=== PATIENT | male | born 1960 | race Caucasian/White ===

== ENCOUNTER 2018-04-04 13:50 | Emergency (ER) | payer OTHER, SELFPAY ==
[2018-04-04 13:51] VITALS: BP 131/63; PULSE 80; RESP 14; TEMP 37.7; O2SAT 97; BMI 36.6
--- NOTE | 2018-04-04 15:46 | CT_ITS ---
STUDY: CT ABDOMEN AND PELVIS WITHOUT CONTRAST REASON FOR EXAM: Male, 57 years old. Left groin pain RADIATION DOSAGE (If Supplied By Facility): CTDIvol = ( 22.22 ) mGy, DLP = ( 1126.89 ) mGycm TECHNIQUE: Transaxial images were obtained from the dome of the diaphragm to the symphysis pubis without oral contrast, and without intravenous contrast. Sagittal and coronal images were reconstructed. Individualized dose optimization techniques were used for this CT. COMPARISON: None. FINDINGS: Body wall soft tissues: There is no hernia or lymphadenopathy of the groin. Osseous structures: No acute process. Inferior chest: No acute process. Hepatobiliary: The liver is enlarged, craniocaudal right liver 21 cm. It appears to be mildly steatotic. Normal gallbladder and biliary tree. Pancreas: No acute process. Spleen: Normal. Adrenal glands: Normal. Urogenital: Normal kidneys, collecting systems, ureters, urinary bladder, prostate and seminal vesicles. Pelvic floor and sidewalls and retroperitoneum: No mass or adenopathy. Vasculature: No acute process. Stomach: No acute process. Small bowel and mesentery: No acute process. Large bowel: The appendix appears to be surgically absent. Large bowel to the distal descending colon is normal. There is acute diverticulitis of the proximal sigmoid colon and diffuse diverticulosis of the proximal to mid sigmoid colon. In the region of diverticulitis, there is prominent inflammatory induration in the fat surrounding the thick-walled bowel. There is no phlegmon, abscess or juliet perforation. Free fluid or free air: None. CT/Abdomen/Pelvis without Cont IMPRESSION: Acute diverticulitis of the proximal sigmoid colon. Electronically Signed: Gilbert Zapien, at 16:38 EDT Tel , Service support ,
--- NOTE | 2018-04-04 15:47 | ED.DCSUM_ITS ---
- ER Visit Summary Date of Service: 04/04/18 Chief Complaint: Abdominal pain History of Present Illness: The patient is a 57 M who has left-sided abdominal pain. Started yesterday at work. Pain is worse when he was driving. He states the pain is left lateral abdomen. No dysuria hematuria. No nausea, vomiting or diarrhea. He took nothing for it at home. He has no history of any hernias. He has a history of an appendectomy. Physical Examination: Vital signs reviewed. HEENT exam unremarkable. Heart is regular rate and rhythm without murmurs. Lungs are clear to auscultation. Abdomen is soft with tenderness in the left lateral abdomen lateral to the umbilicus. There is no hernia palpated. No skin changes. Extremities reveal no edema. Skin exam normal. Neurologic exam normal. Test Results: Labs are normal except for white blood cell count of 13. CT reveals diverticulitis Emergency Department Course and Treatment: Patient declined pain medications. He will be treated with Cipro and Flagyl the diverticulitis. He will follow-up with his PCP Treatment Plan: [] Disposition: Discharge Impression: Acute diverticulitis This note was generated with [employer] software. It may contain incorrect words, spelling, and punctuation that were not noted in review of the chart prior to signing ED Disposition - Plan for ED Patient: Chief Complaint: Lower Extremity Injury Referrals: NOT,DEFINED [NON-STAFF] -
[2018-04-04 16:09] LABS: Bacteria 0 SEEN /hpf (None Seen); Mucous, Urine 0 SEEN /hpf (<or=2+); Squamous Epithelial Cells - UA 0 SEEN /hpf (0-5); White Blood Cells 0 SEEN /hpf (0-5)
[2018-04-04 16:14] LABS: Absolute Lymphocyte Count 1.92 X10^3/ul (0.83-4.51); Absolute Neutrophil Count 9.7 X10^3/uL (2.0-7.7); Basophil# 0.02 X10^3/uL; Basophil% 0.2 % (0-1); Eosinophil# 0.04 X10^3/uL; Eosinophils% 0.3 % (0-5); Hematocrit 41.1 % (40-54); Hemoglobin 13.9 g/dl (13.0-16.5); Lymphocyte # 1.92 X10^3/ul (4.0); Lymphocyte % 14.8 % (19-41); Mean Corp Hgb Conc 33.8 g/gl (32-36); Mean Corpuscular Hgb 30.3 pg (27.0-32.0); Mean Corpuscular Volume 89.5 fL (80-94); Monocyte# 1.24 X10^3/uL; Monocyte% 9.6 % (0-10); Neutrophil # 9.73 X10^3/uL (2.7-7.7); Neutrophil % 74.9 % (47-70); Platelet Count 219 K/mm3 (150-450); RBC Distribution Width CV 12.5 % (11.6-14.6); Red Blood Count 4.59 M/mm3 (4.6-6.2)
[2018-04-04 16:15] LABS: POSITIVE COUNT NO; POSITIVE DIFFERENTIAL NO; POSITIVE MORPHOLOGY NO
[2018-04-04 16:15] LABS: Color, Urine Yellow (Yellow); Glucose, Dipstick Normal (Normal); Ketone-Dipstick Negative (Negative); Leukocyte Esterase-Dipstick Negative /ul (Negative); Nitrite-Dipstick Negative (Negative); Occult Blood-Urine Negative /ul (Negative); Protein-Dipstick Negative (Negative); Urine Bilirubin Dipstick Negative (Negative); Urine Clarity Clear (Clear); Urine Urobilinogen 1 mg/dl (Normal)
[2018-04-04 16:27] LABS: Anion Gap 7 (5-15); BUN 15 mg/dL (7-18); BUN/Creat Ratio 18.6 RATIO (10-20); Calcium,Total 8.8 mg/dL (8.5-10.1); Chloride 100 mmol/L (98-107); Creatinine, Serum 0.81 mg/dL (0.70-1.30); EST Glomerular Filtration Rate 105 mL/min (>60); Est Glom Filt Rate - Afr Amer 126 mL/min (>60); Estimated Creatinine Clearance 92.94 ml/min; Glucose 101 mg/dL (74-106); Potassium 3.7 mmol/L (3.5-5.1); Sodium Level 136 mmol/L (136-145)
[2018-04-04 16:30] LABS: Red Blood Cells-Urine 0-5 SEEN /hpf (0-5)
[2018-04-04 16:52] VITALS: BP 126/73; PULSE 64; RESP 16; O2SAT 98
--- NOTE | 2018-04-04 16:54 | ED.DEP ---
ED Disposition - Plan for ED Patient: Disposition: Home or Assisted Living Chief Complaint: Lower Extremity Injury Instructions: ED Diverticulitis Prescriptions: Metronidazole [Flagyl] 500 mg PO Q8H #30 tab Ciprofloxacin [Cipro] 500 mg PO BID #20 tab Referrals: NOT,DEFINED [NON-STAFF] -
[2018-04-04] MEDS: metroNIDAZOLE 500 MG Tablet PO (17:16)
[2018-04-04] MEDS: Ciprofloxacin 500 MG Tablet PO (17:16)
== END 2018-04-04 17:23 | disposition home or self-care (01) ==
PROVIDERS: Emergency Medicine; Emergency Provider Emergency Medicine
DX: K57.92 Diverticulitis of intestine, part unspecified, without perforation or abscess without bleeding (principal)
CPT/HCPCS: 74176; 80048; 81001; 85025; 99285; A4216

== ENCOUNTER 2021-07-12 01:52 | Inpatient (IN) | payer BC, SELFPAY ==
[2021-07-12] VITALS (10 sets, daily range): BP systolic 120–142; BP diastolic 70–90; PULSE 52–61; RESP 18–20; TEMP 36.1–36.6; O2SAT 96–99; BMI 37.0
--- NOTE | 2021-07-12 01:07 | PCS.PANDOC ---
PANDEMIC DOCUMENTATION INITIATED: Date: 03/09/2021 Time: 190
--- NOTE | 2021-07-12 01:37 | PCM.HP.STD ---
HPI - General General Date of Admission: 07/12/21 Date of Service: 07/12/21 Chief Complaint: Abdominal distention, abdominal pain HPI Narrative TANYA POTTER, is a 60 M who presents as a direct admission to [facility] from [facility] emergency room, he went there for evaluation of abdominal distention and abdominal pain which started today. Patient was nauseated but he had no emesis. Work-up in the emergency room at [facility] included a CT of the abdomen and pelvis this showed a small bowel obstruction with a transition point identified in the right lower quadrant, fatty liver was noted to be present, there was no evidence of diverticulitis but diverticulosis was present. Patient's labs were obtained white blood cell count was elevated at 13.6 hemoglobin was normal chemistry panel was abnormal for a sodium of 135, glucose was 129. Patient had a high sensitive troponin obtained, he did not have any symptoms of chest discomfort however, his troponin was high at 120.2, second troponin was obtained and it was 112. Patient's chest x-ray showed no acute process. EKG was performed and showed no evidence of ischemic changes according to the ER physician at [facility]. COVID-19 test was ordered but results are pending at the time of this dictation. Patient is fully vaccinated according to nursing. EKG was obtained here after admission and it showed a sinus bradycardia 57 with no evidence of acute ischemic changes. Patient will be admitted, he will be given IV fluids, IV antiemetics, and IV narcotics for pain if needed. Patient will be seen in consultation by general surgery. Patient's troponin will be repeated in a few hours. [facility] Medical History (Updated 07/12/21 @ 01:[address] Jonas West, ) Hypertension Vzbts-Kdneiwrlo-Agjpi (WPW) syndrome (~1992) Home Medications Lisinopril PO/SL DAILY 04/04/18 [History Last Taken 07/11/21] Allergy/AdvReac Type Severity Reaction Status Date / Time Penicillins AdvReac Other Verified 07/12/21 01:09 Surgical History (Updated 07/12/21 @ 01:26 by Senia Sheriff) Hx of appendectomy Social History Smoking Status: Former smoker ROS Constitutional Constitutional: Denies anorexia, change in weight, fever(s), night sweats or weakness Eyes Eyes: Denies blurry vision, change in vision, discharge from eye(s) or eye pain ENT HEENT: Denies abnormal hearing, dysphagia, ear pain, epistaxis or headache(s) Cardiovascular Cardiovascular: Denies chest pain, claudication, dyspnea on exertion, edema or palpitations Respiratory/Chest Respiratory/Chest: Denies cough, hemoptysis, shortness of breath at rest or shortness of breath with exertion Gastrointestinal Gastrointestinal: Reports abdominal pain and nausea; Denies constipation, diarrhea, hematemesis, hematochezia, melena or vomiting Genitourinary Genitourinary: Denies dysuria, hematuria, urinary frequency, urinary hesitancy, urinary incontinence or urinary urgency Musculoskeletal Musculoskeletal: Denies back pain, joint pain, joint stiffness, joint swelling, myalgias or neck pain Neurologic Neurologic: Denies abnormal gait, abnormal speech, dizziness, focal weakness, headache(s), loss of vision, numbness, other visual disturbances, paresthesias, syncope or tingling Psychiatric Psychiatric: Denies anxiety, cognitive impairment, depression, irritability, mood swings or suicidal ideation Endocrine Endocrinology: Denies change in body appearance, cold intolerance, excessive sweating, heat intolerance, polydipsia or polyuria Hematologic/Lymphatic Hematologic/Lymphatic: Denies none, anemia, easy bleeding, easy bruising or lymphadenopathy Allergic/Immunologic Allergic/Immunologic: Denies rhinitis, urticaria, eczemia or asthma Vital Signs Vital Signs Vital Signs: 07/12/21 01:05 07/12/21 01:31 Temperature 97.4 F L Temperature Source Oral Pulse Rate 60 58 L Respiratory Rate 18 Blood Pressure 142/90 H Blood Pressure Mean 107 Blood Pressure Source Monitor Blood Pressure Position Semi-Fowlers Blood Pressure Location Left Arm Pulse Ox 96 Oxygen Delivery Method Room Air Weight Weight: 110.6 kg Body Mass Index (BMI) 37.0 Physical Exam Const alert, oriented x3, no apparent distress and healthy appearing General Appearance: cooperative, well kempt and well developed Orientation / Consciousness: awake, oriented to person, oriented to place and oriented to time HEENT normocephalic, head/scalp atraumatic, hearing grossly normal bilaterally and moist oral mucous membranes Eyes PERRL, EOMs intact bilaterally and conjunctivae normal Neck nuchal rigidity, supple, no JVD, thyroid normal and no carotid bruits General: trachea midline Resp normal respiratory effort, no retractions, no use of accessory muscles and clear to auscultation bilaterally Auscultation: Negative for rales, rhonchi or wheezes Cardio regular rate, regular rhythm, S1 normal heart sound, S2 normal heart sound, no murmurs, no rub and no gallops GI soft to palpation GI Narrative: Patient has mild abdominal distention at the time of my exam, there is moderate tenderness to palpation over the entire abdomen-more so over the left abdominal area. Bowel sounds are diminished in all 4 quadrants. Extremity normal to inspection and no clubbing, cyanosis or edema Skin no rashes or lesions noted, no wounds and skin turgor normal General Skin Exam: no breakdown Neuro oriented x3, CN's II-XII intact bilaterally, no focal motor deficits and no sensory deficits noted Sensorium / Orientation: awake and alert Speech: speech normal Psych thought process normal and affect normal Assessment & Plan Assessment/Plan (1) Small bowel obstruction: PLAN: #1 small bowel obstruction-transition point right lower quadrant (distal ileum)-patient was admitted to PCU, he will be seen in consultation by general surgery, patient does not have an NG in place-this is not necessary at this time. Patient will be given IV morphine as needed for abdominal discomfort, he will get be given IV fluids and IV antiemetics as needed. #2 essential hypertension-blood pressure will be monitored, he may need to be on IV medication for blood pressure. #3 elevated troponin-etiology of the elevation is unknown at this time, patient does not have any complaints of chest discomfort, the ER physician at [facility] emergency room stated that he obtained a troponin due to complaints of abdominal pain. 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
--- NOTE | 2021-07-12 02:16 | EKG12_ITS ---
Test Reason : CP ADMISSION Blood Pressure : / mmHG Vent. Rate : 057 BPM Atrial Rate : 057 BPM P-R Int : 156 ms QRS Dur : 088 ms QT Int : 448 ms P-R-T Axes : 027 038 024 degrees QTc Int : 436 ms Sinus bradycardia Otherwise normal ECG No previous ECGs available Confirmed by MICHELA DAVILA, YULI ([id number]), editorial writer TARA AWAD ([id number]) on 07/14/2021 8:43:07 AM Referred By: ADRIÁN Confirmed By:YULI ABERNATHY MD
[2021-07-12] MEDS: 0.9% Normal Saline 1,000 ML 150 ML IV ×2 (02:30→09:07)
[2021-07-12] MEDS: 0.9% Saline Lock 10 ML Syringe IV ×2 (02:31→02:37)
[2021-07-12 06:50] LABS: Absolute Lymphocyte Count 1.06 X10^3/uL (0.83-4.51); Absolute Neutrophil Count 9.7 X10^3/uL (2.0-7.7); Basophil# 0.05 X10^3/uL; Basophil% 0.4 % (0-1); Eosinophil# 0.04 X10^3/uL; Eosinophils% 0.3 % (0-5); Hematocrit 40.6 % (40-54); Hemoglobin 14.2 g/dL (13.0-16.5); Lymphocyte # 1.06 X10^3/ul (0.83-4.51); Mean Corpuscular Hgb 30.8 pg (27.0-32.0); Mean Corpuscular Volume 88.1 fL (80-94); Mean Platelet Vol. 8.9 fl (6.2-12.0); Monocyte# 0.82 X10^3/uL; NRBC Flagged by Analyzer 0 % (0-5); Neutrophil # 9.72 X10^3/uL (2.7-7.7); Platelet Count 241 K/mm3 (150-450); RBC Distribution Width CV 11.9 % (11.6-14.6); RBC Distribution Width SD 38.3 fl (35.1-43.9); Red Blood Count 4.61 M/mm3 (4.6-6.2); White Blood Count 11.7 K/mm3 (4.4-11.0)
[2021-07-12 07:19] LABS: ALB/GLOB Ratio 0.8 RATIO (0.9-2.4); AST(SGOT) 20 U/L (15-37); Alanine Aminotransfer ALT/SGPT 18 U/L (16-61); Albumin, Serum 3.1 g/dL (3.2-5.0); Alkaline Phosphatase 55 U/L (45-117); Anion Gap 9 (5-15); BUN 15 mg/dL (7-18); BUN/Creat Ratio 21.9 RATIO (10-20); Calcium,Total 8.3 mg/dL (8.5-10.1); Chloride 102 mmol/L (98-107); Creatinine, Serum 0.69 mg/dL (0.70-1.30); EST Glomerular Filtration Rate 124 mL/min (>60); Est Glom Filt Rate - Afr Amer 151 mL/min (>60); Estimated Creatinine Clearance 108.77 ml/min; Globulin 3.7 g/dL (2.2-4.2); Glucose 129 mg/dL (74-106); Potassium 3.7 mmol/L (3.5-5.1); Protein, Total 6.8 g/dL (6.4-8.2); Sodium Level 136 mmol/L (136-145)
[2021-07-12 07:27] LABS: Troponin-I HS 88 pg/mL (3.0-78.0)
[2021-07-12] MEDS: Heparin Injection (Vial) 5,000 UNIT/ML VIAL 5000 UNIT SC (09:17)
--- NOTE | 2021-07-12 09:49 | PCM.PN.HOSP ---
Documented by User: Brittany Burroughs NP-C 07/12/21 10:17 Subjective Subjective In and examined. Patient lying in bed no stress noted. Patient states that last night after being transferred from [facility] that he had a small bowel movement. Patient is also passing flatus. Objective Data Objective Data Vital Signs: Vital Signs Temp Pulse Resp BP Pulse Ox 97.8 F 53 L 18 127/74 H 98 07/12/21 05:20 07/12/21 07:00 07/12/21 05:20 07/12/21 05:20 07/12/21 05:20 Oxygen Delivery Method Room Air Weight: 243 lb 13.3 oz Body Mass Index (BMI) 37.0 Intake & Output: Intake and Output for Last 24 Hours 07/10/21 07/11/21 07/12/21 23:59 23:59 23:59 Intake Total 992.5 / 992.5 Balance 992.5 / 992.5 Lab / Micro Data Result Diagrams: 07/12/21 05:29 07/12/21 05:29 Labs: Laboratory Results - last 24 hr 07/12/21 05:29: WBC 11.7 H, RBC 4.61, Hgb 14.2, Hct 40.6, MCV 88.1, MCH 30.8, MCHC 35.0, RDW Std Deviation 38.3, RDW Coeff of Marcel 11.9, Plt Count 241, MPV 8.9, Immature Gran % (Auto) 0.300, Neut % (Auto) 83.0 H, Lymph % (Auto) 9.0 L, [place] % (Auto) 7.0, Eos % (Auto) 0.3, Baso % (Auto) 0.4, Absolute Neuts (auto) 9.7 H, Absolute Lymphs (auto) 1.06, Nucleated RBC % 0 07/12/21 05:29: Sodium 136, Potassium 3.7, Chloride 102, Carbon Dioxide 25.0, Anion Gap 9, BUN 15, Creatinine 0.69 L, Estim Creat Clear Calc 108.77, Est GFR (MDRD) Af Amer 151, Est GFR (MDRD) Non-Af 124, BUN/Creatinine Ratio 21.9 H, Glucose 129 H, Calcium 8.3 L, Total Bilirubin 1.10 H, AST 20, ALT 18, Alkaline Phosphatase 55, Total Protein 6.8, Albumin 3.1 L, Globulin 3.7, Albumin/Globulin Ratio 0.8 L 07/12/21 05:29: Troponin I High Sens 88 H Physical Exam Const alert, oriented x3 and no apparent distress HEENT head/scalp atraumatic and moist oral mucous membranes Head and Scalp: normocephalic Eyes conjunctivae normal and no scleral icterus Neck full ROM and supple Resp normal respiratory effort, normal air movement and clear to auscultation bilaterally Cardio regular rate, regular rhythm, S1 normal heart sound and S2 normal heart sound GI soft to palpation Auscultation: hypoactive bowel sounds Palpation: tender RLQ and RUQ Extremity normal to inspection, full ROM and no clubbing, cyanosis or edema Peripheral Pulses: Yes pulses 2+ throughout Skin no rashes or lesions noted, no wounds and skin turgor normal Neuro oriented x3, moves all extremities, no focal motor deficits and no sensory deficits noted Sensorium / Orientation: awake and alert Psych affect normal Assessment & Plan Assessment/Plan (1) Small bowel obstruction: PLAN: Patient is a 60-year-old male who originally printed to [facility] with complaints of abdominal pain and abdominal distention. Per CT that was completed at [facility] a small bowel obstruction was noted with a transition point of pain in the right lower quadrant. After arriving [facility] patient had a small bowel movement that was normal consistency and patient's pain improved. 1. Small bowel obstruction -Patient passing flatus, had bowel movement evening of 07/11/2021 -Continues to have dull abdominal pain but states is improved. -Per surgery patient will be initiated on clear liquid diet without carbonation and given a Dulcolax suppository -Further serial abdominal exams and patient's toleration of diet to guide plan of care. 2. Hypertension -Vital signs per protocol, stable -Lisinopril on hold 3. Elevated troponin -Patient denies chest pain, shortness of breath, back pain 4. History of Rhdgc-Xklldjxpn-Eaxzz syndrome -Patient underwent ablation, normal sinus rhythm/sinus bradycardia DVT prophylaxis-subcu heparin This patient was seen by ILENE Dewey under the supervision of Dr. Jolley. Documented by User: Dr. Kelsie Jolley MD 07/12/21 16:38 Objective Data Lab / Micro Data Result Diagrams: 07/12/21 05:29 07/12/21 05:29 Charges/Coding Addendum Addendum: Patient seen by Brittany ODOM under my supervision Patient seen and examined. He was admitted with a complaint of abdominal pain and found to have small bowel obstruction. He has no complaints today. Pain is improved. He is passing gas. Review of systems otherwise negative. General surgery on board. O/E: Const alert, oriented x3 and no apparent distress HEENT head/scalp atraumatic and moist oral mucous membranes Head and Scalp: normocephalic Eyes conjunctivae normal and no scleral icterus Neck full ROM and supple Resp normal respiratory effort, normal air movement and clear to auscultation bilaterally Cardio regular rate, regular rhythm, S1 normal heart sound and S2 normal heart sound GI soft to palpation Auscultation: Bowel sounds. Minimal tenderness on palpation. Extremity normal to inspection, full ROM and no clubbing, cyanosis or edema Peripheral Pulses: Yes pulses 2+ throughout Skin no rashes or lesions noted, no wounds and skin turgor normal Neuro oriented x3, moves all extremities, no focal motor deficits Sensorium / Orientation: awake and alert Psych affect normal Plan is to initiate him on clear liquid diet per general surgery. To be advanced as per general surgery. Continue gentle hydration with IV fluids. On heparin for DVT prophylaxis. Rest as per Brittany ODOM's note, which I have reviewed and endorsed.
--- NOTE | 2021-07-12 09:54 | EX.PCM.CON.S ---
Assessment & Plan Assessment/Plan (1) Small bowel obstruction: PLAN: This is a 60-year-old male with only prior surgical history of a laparoscopic appendectomy who presents with a constellation of signs and symptoms suggestive of a partial small bowel obstruction. CT imaging from the outlying facility was reviewed in detail. Patient does not have a discrete transition point but there is generally decompressed distal small bowel leading into the right colon. At this point, patient has had some resumption of bowel function with regular flatus. Furthermore, he denies any abdominal discomfort at rest or with exam. Recommend: ?Clear liquid diet, without carbonation ?Dulcolax suppository ? Will follow for patient's tolerance and serial abdominal exams HPI Consult Data Date of Consult: 07/12/21 HPI Narrative HPI Narrative: TANYA POTTER, is a 60 M who presents from [facility] last evening where he was diagnosed with likely small bowel obstruction. Patient states he felt well yesterday morning and had a regular bowel movement. He then proceeded to engage in a intense workout on a new exercise bike. Thereafter he states he had some upper abdominal pain, but wanted to see if food would make it better. Unfortunately this only intensified the pain. When this pain persisted towards dinnertime and became associated with some sweating, he decided to seek evaluation. At the outlying facility, CT of the abdomen pelvis was performed and showed rather diffusely dilated small bowel with a transition zone in the right lower quadrant. A work-up for atypical cardiac pain was also performed and the patient was found with mildly elevated troponin. Because, patient complained only of nausea and had no emesis, a nasogastric tube was not inserted. This morning patient states that his abdominal discomfort is all but resolved. He states that he is now passing flatus. He has not had an additional bowel movement today, but states that he is hungry. He declares that yesterday's events were something he is never experienced before. He questions whether recently eating some corn may have had anything to do with his presentation. He readily acknowledges that he enjoys corn but it generally does not digest well for him. Patient does have a history of diverticulitis in 2018. He states the pain from yesterday is distinctly different and that the pain from yesterday really was localized to his epigastric area. He states he did have a colonoscopy in the last several years which was notable for several small polyps and he was given a 5-year follow-up. He also confirms a history of occasional heartburn, but again states that his presentation yesterday was different from the sensation associated with his dyspepsia. [facility] Medical History (Updated 07/12/21 @ 01:[address] Jonas West, DO) Hypertension Iogzn-Qwrayuhxd-Bjbdw (WPW) syndrome (~1992) Home Medications Lisinopril PO/SL DAILY 04/04/18 [History Last Taken 07/11/21] Allergy/AdvReac Type Severity Reaction Status Date / Time Penicillins AdvReac Other Verified 07/12/21 01:09 Surgical History (Updated 07/12/21 @ 01:26 by Senia Sheriff) Hx of appendectomy Social History Smoking Status: Former smoker Physical Exam Const alert, oriented x3 and no apparent distress GI GI Narrative: Obese, hirsute, faint supraumbilical scar now well-healed. Nondistended. Soft and nontender to palpation x4 quadrants. Lab / Micro Data Result Diagrams: 07/12/21 05:29 07/12/21 05:29 Labs: Laboratory Results - last 24 hr 07/12/21 05:29: WBC 11.7 H, RBC 4.61, Hgb 14.2, Hct 40.6, MCV 88.1, MCH 30.8, MCHC 35.0, RDW Std Deviation 38.3, RDW Coeff of Marcel 11.9, Plt Count 241, MPV 8.9, Immature Gran % (Auto) 0.300, Neut % (Auto) 83.0 H, Lymph % (Auto) 9.0 L, [place] % (Auto) 7.0, Eos % (Auto) 0.3, Baso % (Auto) 0.4, Absolute Neuts (auto) 9.7 H, Absolute Lymphs (auto) 1.06, Nucleated RBC % 0 07/12/21 05:29: Sodium 136, Potassium 3.7, Chloride 102, Carbon Dioxide 25.0, Anion Gap 9, BUN 15, Creatinine 0.69 L, Estim Creat Clear Calc 108.77, Est GFR (MDRD) Af Amer 151, Est GFR (MDRD) Non-Af 124, BUN/Creatinine Ratio 21.9 H, Glucose 129 H, Calcium 8.3 L, Total Bilirubin 1.10 H, AST 20, ALT 18, Alkaline Phosphatase 55, Total Protein 6.8, Albumin 3.1 L, Globulin 3.7, Albumin/Globulin Ratio 0.8 L 07/12/21 05:29: Troponin I High Sens 88 H Charges/Coding Visit Charges Inpatient E&M: 13709 Init Hosp L2
[2021-07-12] MEDS: Bisacodyl 10 MG Suppository RC (10:59)
--- NOTE | 2021-07-12 17:47 | PCM.PN.BLA ---
Progress Note Patient seen and examined at bedside this evening. He reports that he had a bowel movement following a suppository and then a second bowel movement spontaneously. He tolerated advancement to clears and then full liquids without any subsequent nausea or vomiting. The abdominal pain that he described on presentation has not recurred. He request discharge home. Nursing notes that patient's vitals have remained stable throughout his course. From a surgical standpoint, patient would meet discharge criteria to home, but defer to primary team?especially the concerns patient's cardiac status. I would recommend patient continue a liquid/soft diet on discharge for the first couple days.
--- NOTE | 2021-07-12 17:49 | NURSING ---
[id number] Dr Luu into see patient. Patient tolerated full liquid diet and had another bowel movement. no pain noted. Dr Luu cleared patient to go home. Will notify Valeriano Burroughs NP. Merissa Bacon RN
--- NOTE | 2021-07-12 19:15 | NURSING ---
[id number] patient asking about going home. informed patient no orders yet in computer. Patient not happy and wanting to go home. Valeriano Burroughs NP aware. Merissa Bacon RN
--- NOTE | 2021-07-12 19:17 | NURSING ---
Pt insisting on leaving AMA at this time. That his ride is here and that he has been waiting hours to be able to leave and that he will not wait any longer. IV taken out by this RN, AMA papers signed, and made aware.
--- NOTE | 2021-07-12 20:02 | NURSING ---
Patient left against medical advice at 1911.
== END 2021-07-12 19:12 | disposition left against medical advice (07) | DRG 390 ==
PROVIDERS: Admitting Provider Internal Medicine; Visit Provider Student in an Organized Health Care Education/Training Program
DX: K56.600 Partial intestinal obstruction, unspecified as to cause (principal); K76.0 Fatty (change of) liver, not elsewhere classified; K57.90 Diverticulosis of intestine, part unspecified, without perforation or abscess without bleeding; I10 Essential (primary) hypertension; Z87.891 Personal history of nicotine dependence; Z79.899 Other long term (current) drug therapy; R77.8 Other specified abnormalities of plasma proteins
CPT/HCPCS: 36415; 80053; 84484; 85025; 93005; J7030; A4216